=== PATIENT | male | born 1990 | race Caucasian/White ===

== ENCOUNTER → 2018-01-20 | Outpatient (CLI) | payer OTHER ==
[~2018-01-20] MED LIST: ACET500 PO; Bactrim Ds Tab1 EACH PO; HYDMOR2 PO; Percocet 5-3251 EACH PO; ROXICODONE5 MG PO
== END ==
LOC: LAB SHORT 17:01 → LAB 17:01
DX: L08.9 Local infection of the skin and subcutaneous tissue, unspecified (principal); L20.89 Other atopic dermatitis; L23.9 Allergic contact dermatitis, unspecified cause
CPT/HCPCS: 87070; 87205

== ENCOUNTER 2023-02-05 17:03 | Emergency (ER) | payer OTHER ==
[~2023-02-05] VITALS: Ht 182.9 cm; Wt 120.2 kg
[2023-02-05] MEDS ORDERED: KLONOPIN0.5 M9 PO (17:11)
[2023-02-05] MEDS ORDERED: METH40 PO (17:11)
[2023-02-05 17:52] LABS: Albumin, Blood 3.7 g/dL (3.4-5.0); Albumin/Globulin Ratio 0.9 (0.8-1.8); Bilirubin, Total 0.2 mg/dL (0.1-1.0); Bun/Creatinine Ratio 29.8 (12.0-20.0); Calcium, Blood 9.5 mg/dL (8.5-10.1); Creatinine, Blood 0.54 mg/dL (0.60-1.20); Globulin, Blood 4.3 g/dL (2.2-4.0); Potassium, Blood 4.1 mmol/L (3.5-5.5)
[2023-02-05 18:09] LABS: BASOPHILS ABSOLUTE AUTO 0.06 K/mm3 (0.00-0.23); BASOPHILS PERCENT AUTO 1 % (0-2); EOSINOPHILS ABSOLUTE AUTO 0.61 K/mm3 (0.00-0.68); EOSINOPHILS PERCENT AUTO 5 % (0-6); Hematocrit 43.2 % (37.0-53.0); Hemoglobin 14.8 g/dL (13.5-17.5); IMMATURE GRAN ABSOLUTE AUTO 0.02 K/mm3 (0.00-0.10); IMMATURE GRAN PERCENT AUTO 0 % (0-1); LYMPHOCYTES ABSOLUTE AUTO 3.82 K/mm3 (0.84-5.20); LYMPHOCYTES PERCENT AUTO 32 % (21-46); MONOCYTES ABSOLUTE AUTO 0.71 K/mm3 (0.16-1.47); MONOCYTES PERCENT AUTO 6 % (4-13); Mean Corpuscular HGB 29.2 pg (26.0-34.0); Mean Corpuscular HGB Conc 34.3 g/dL (31.5-36.5); Mean Corpuscular Volume 85 fL (80-100); Mean Platelet Volume 9.4 fL (9.1-12.4); NEUTROPHILS ABSOLUTE AUTO 6.62 K/mm3 (1.96-9.15); NEUTROPHILS PERCENT AUTO 56 % (41-73); Platelet Count 305 K/mm3 (150-400); RDW Standard Deviation 37.2 fL (35.1-46.3); Red Blood Cell Count 5.06 M/mm3 (4.30-5.90); White Blood Cell Count 11.84 K/mm3 (4.00-11.30)
[2023-02-05 18:20] VITALS: BP 137/88
== END 2023-02-05 19:57 | disposition home or self-care (01) ==
LOC: ER 17:03
PROVIDERS: Emergency Medicine
DX: K21.00 Gastro-esophageal reflux disease with esophagitis, without bleeding (principal); Z79.899 Other long term (current) drug therapy; F17.200 Nicotine dependence, unspecified, uncomplicated
CPT/HCPCS: 71046; 80053; 84484; 85025; 93005; 93010; 99285-25; A9270